=== PATIENT | male | born 1980 | race Caucasian/White ===

== ENCOUNTER 2022-03-07 20:51 | Emergency (ER) | payer SELFPAY ==
[2022-03-07] MEDS ORDERED: CYCLOBENZAPRINE10 MG PO (23:29)
== END 2022-03-07 23:57 | disposition home or self-care (01) ==
LOC: FER 20:51
DX: M54.50 Low back pain, unspecified (principal); E78.5 Hyperlipidemia, unspecified; F17.220 Nicotine dependence, chewing tobacco, uncomplicated; Z79.899 Other long term (current) drug therapy; Z28.310 Unvaccinated for COVID-19
CPT/HCPCS: 96372; J1100; J1885